=== PATIENT | female | born 2005 | race Caucasian/White ===

== ENCOUNTER 2023-10-22 18:33 | Emergency (ER) | payer OTHER ==
[~2023-10-22] VITALS: Ht 152.4 cm; Wt 77.1 kg
[2023-10-23 01:00] VITALS: BP 128/67; TEMP 98.1; O2SAT 98
[2023-10-23] MEDS: IBUPROFEN 600MG TAB PO ONE (01:08)
== END 2023-10-23 01:00 | disposition home or self-care (01) ==
LOC: M ED 18:33
DX: S00.03XA Contusion of scalp, initial encounter (principal); S80.911A Unspecified superficial injury of right knee, initial encounter; W10.8XXA Fall (on) (from) other stairs and steps, initial encounter; J45.909 Unspecified asthma, uncomplicated; Y92.009 Unspecified place in unspecified non-institutional (private) residence as the place of occurrence of the external cause; Y93.89 Activity, other specified; Y99.9 Unspecified external cause status

== ENCOUNTER 2024-04-24 19:33 | Emergency (ER) | payer OTHER ==
[~2024-04-24] VITALS: Ht 152.4 cm; Wt 84.0 kg
[2024-04-24 20:25] LABS: BASO % 0.4 % (0.0-1.0); EOS # 0.2 10^3/uL (0.0-0.5); EOS % 1.9 % (0.0-3.0); HEMATOCRIT 38.9 % (36.0-47.0); HEMOGLOBIN 13.7 g/dl (12.0-15.5); LYMPH # 2.6 10^3/uL (1.5-5.0); LYMPH % 27.6 % (24.0-44.0); MEAN CORPUSCULAR HEMOGLOBIN 32.1 pg (27.0-33.0); MEAN CORPUSCULAR HGB CONC 35.2 g/dl (32.0-36.5); MEAN CORPUSCULAR VOLUME 91.1 fl (80.0-96.0); MONO # 0.7 10^3/uL (0.0-0.8); MONO % 7.7 % (2.0-8.0); NEUTROPHILS # 5.8 10^3/uL (1.5-8.5); NEUTROPHILS % 62.1 % (36.0-66.0); PLATELET COUNT, AUTOMATED 274 10^3/uL (150-450); RED BLOOD COUNT 4.27 10^6/uL (4.00-5.40); WHITE BLOOD COUNT 9.3 10^3/uL (4.0-10.0)
[2024-04-24 20:45] LABS: CK-MB VALUE MASS < 1.0 NG/ML (<3.6); LIPASE 30 U/L (12-53)
[2024-04-24 20:46] LABS: HCG, SERUM QUALITATIVE NEGATIVE (NEGATIVE)
[2024-04-24 20:47] LABS: ALBUMIN 4.1 G/DL (3.2-5.2); ALKALINE PHOSPHATASE 65 U/L (46-116); ALT/SGPT 11 U/L (7.0-40); AST/SGOT < 8 U/L (<34); BILIRUBIN,DIRECT 0.1 MG/DL (<0.4); BILIRUBIN,TOTAL 0.5 MG/DL (0.3-1.2); BLOOD UREA NITROGEN 10 MG/DL (9-23); CALCIUM LEVEL 9.5 MG/DL (8.5-10.1); CARBON DIOXIDE LEVEL 22 MMOL/L (20-31); CHLORIDE LEVEL 111 MMOL/L (98-107); CPK CREATINE PHOSPHOKINASE 56 U/L (34-145); CREATININE FOR GFR 0.72 MG/DL (0.55-1.30); GLOMERULAR FILTRATION RATE > 60.0 (>60); GLUCOSE, FASTING 99 MG/DL (60-100); MB/CK RELATIVE INDEX 1.78 (< OR =4); POTASSIUM SERUM 3.9 MMOL/L (3.5-5.1); SODIUM LEVEL 140 MMOL/L (136-145); TOTAL PROTEIN 7.5 G/DL (5.7-8.2)
[2024-04-24 20:48] LABS: THYROID STIMULATING HORMONE 0.757 uIU/ML (0.55-4.78)
[2024-04-24 20:49] LABS: FREE T4 0.99 NG/DL (0.89-1.76)
[2024-04-24 22:06] LABS: CK-MB VALUE MASS < 1.0 NG/ML (<3.6)
[2024-04-24 22:07] LABS: CPK CREATINE PHOSPHOKINASE 55 U/L (34-145); MB/CK RELATIVE INDEX 1.81 (< OR =4)
[2024-04-24 22:43] VITALS: BP 123/71; TEMP 97.4; O2SAT 97
== END 2024-04-24 22:46 | disposition home or self-care (01) ==
LOC: M ED 19:33 → EDBD 19:33 → M ED 22:46
DX: R07.9 Chest pain, unspecified (principal); F41.9 Anxiety disorder, unspecified; F32.9 Major depressive disorder, single episode, unspecified; F17.200 Nicotine dependence, unspecified, uncomplicated; F12.10 Cannabis abuse, uncomplicated